=== PATIENT | male | born 1980 | race Two or more races ===

== ENCOUNTER 2022-01-26 09:47 | Emergency (ER) | payer MEDICAID, OTHER ==
[~2022-01-26] VITALS: Ht 188 cm; Wt 110.2 kg
[2022-01-26] MEDS ORDERED: NEOMYCIN-BACITRACIN-POLYM UNITDOSE PKG TOP OINT TOP ONE (10:45)
[2022-01-26] MEDS ORDERED: LORazepam 2MG/ML-1ML VIAL IV ONE (11:45)
[2022-01-26] MEDS ORDERED: SODIUM CHLORIDE 0.9% 1,000 ML IV ONE (11:45)
[2022-01-26] MEDS ORDERED: SODIUM CHLORIDE 0.9% 500 ML IVB ONE (11:45)
[2022-01-26 12:17] LABS: Basophils # (auto) 0 10 ^3/uL (0-0.2); Basophils % (auto) 0.5 % (0.0-2.0); Eosinophils # (auto) 0.1 10 ^3/uL (0-0.8); Eosinophils % (auto) 1.8 % (0.0-7.0); Hematocrit 43.8 % (41.0-53.0); Hemoglobin 14.8 g/dL (13.5-17.5); Lymphocytes # (auto) 1.5 10 ^3/uL (0.4-5.4); Lymphocytes % (auto) 20.6 % (10.0-50.0); Mean Corpuscular Hemoglobin 30.8 pg (28.0-32.0); Mean Corpuscular Hgb Conc. 33.7 g/dL (32.0-36.0); Mean Corpuscular Volume 91.4 fL (80.0-100.0); Monocytes # (auto) 0.3 10 ^3/uL (0-1.3); Monocytes % (auto) 4.6 % (0.0-12.0); Neutrophils # (auto) 5.2 10 ^3/uL (1.6-8.6); Neutrophils % (auto) 72.5 % (37.0-80.0); Red Cell Distribution Width 14.6 % (11.8-14.3); White Blood Cell 7.1 10^3/uL (4.4-10.8)
[2022-01-26 12:40] LABS: Albumin 3.7 g/dL (3.4-5.0); BUN/Creatinine Ratio 10.3; Magnesium 2.2 mg/dL (1.6-2.6); Potassium 4.4 mmol/L (3.5-5.1)
[2022-01-26 12:51] LABS: Bilirubin, Total 0.6 mg/dL (0.2-1.0); Total Protein 7.7 g/dL (6.4-8.2)
[2022-01-26 13:42] LABS: Urine Bacteria NONE SEEN /hpf (None Seen); Urine Blood 1+ /uL (Negative); Urine Specific Gravity 1.017 (1.001-1.035); Urine WBC <1 /hpf (0 - 3)
[2022-01-26 13:54] LABS: Alcohol, Urine < 3.0 mg/dL (0-10); Amphetamine Screen, Urine NEGATIVE (NEGATIVE); Barbiturate Scree,Urine NEGATIVE (NEGATIVE); Benzodiazephine Screen, Urine NEGATIVE (NEGATIVE); Cannabinoid Screen, Urine NEGATIVE (NEGATIVE); Cocaine Screen, Urine NEGATIVE (NEGATIVE); Opiate Scree,Urine NEGATIVE (NEGATIVE); Phencyclidine Screen, Urine NEGATIVE (NEGATIVE)
[2022-01-26] MEDS ORDERED: KETOROLAC TROMETH 30 MG/ML 1ML VIAL IV ONE (16:00)
[2022-01-26] MEDS ORDERED: METOCLOPRAMIDE HCL 5MG/ml INJ 2ml VIAL IV ONE (16:00)
[2022-01-26 16:30] VITALS: BP 136/70
== END 2022-01-26 16:39 | disposition home or self-care (01) ==
LOC: ER 09:47
DX: F32.9 Major depressive disorder, single episode, unspecified (principal); R44.0 Auditory hallucinations; R45.851 Suicidal ideations; M54.12 Radiculopathy, cervical region; Z90.49 Acquired absence of other specified parts of digestive tract
CPT/HCPCS: 36415; 70450; 71046; 80053; 80307; 81001; 83735; 84443; 85025; 93005; 96361; 96374; 99285; J2060; J7030; J7040

== ENCOUNTER 2022-01-26 18:43 | Emergency (ER) | payer MEDICAID ==
[~2022-01-26] VITALS: Ht 185.4 cm; Wt 117.9 kg
[2022-01-26 20:11] LABS: Urine Bacteria NONE SEEN /hpf (None Seen); Urine Blood 1+ /uL (Negative); Urine Specific Gravity 1.019 (1.001-1.035); Urine WBC 1 /hpf (0 - 3)
[2022-01-26 20:49] LABS: Alcohol, Urine < 3.0 mg/dL (0-10); Amphetamine Screen, Urine NEGATIVE (NEGATIVE); Barbiturate Scree,Urine NEGATIVE (NEGATIVE); Benzodiazephine Screen, Urine NEGATIVE (NEGATIVE); Cannabinoid Screen, Urine NEGATIVE (NEGATIVE); Cocaine Screen, Urine NEGATIVE (NEGATIVE); Opiate Scree,Urine NEGATIVE (NEGATIVE); Phencyclidine Screen, Urine NEGATIVE (NEGATIVE)
[2022-01-26 21:23] LABS: Basophils # (auto) 0 10 ^3/uL (0-0.2); Basophils % (auto) 0.5 % (0.0-2.0); Eosinophils # (auto) 0.1 10 ^3/uL (0-0.8); Hematocrit 42.5 % (41.0-53.0); Hemoglobin 14.4 g/dL (13.5-17.5); Lymphocytes # (auto) 1.6 10 ^3/uL (0.4-5.4); Lymphocytes % (auto) 27.9 % (10.0-50.0); Mean Corpuscular Hemoglobin 30.8 pg (28.0-32.0); Mean Corpuscular Hgb Conc. 33.9 g/dL (32.0-36.0); Mean Corpuscular Volume 90.7 fL (80.0-100.0); Monocytes # (auto) 0.4 10 ^3/uL (0-1.3); Neutrophils # (auto) 3.6 10 ^3/uL (1.6-8.6); Neutrophils % (auto) 62.6 % (37.0-80.0); Nucleated Red Blood Cells % 0.1 %; Red Blood Cells 4.68 10^6/uL (4.5-5.90); Red Cell Distribution Width 14.7 % (11.8-14.3); White Blood Cell 5.7 10^3/uL (4.4-10.8)
[2022-01-26 21:44] LABS: Albumin 3.4 g/dL (3.4-5.0); BUN/Creatinine Ratio 11.1; Potassium 3.6 mmol/L (3.5-5.1); Salicylate < 1.7 mg/dL (2.8-20.0)
[2022-01-26 21:46] LABS: Acetaminophen < 2.0 ug/mL (10-30)
[2022-01-26 21:47] LABS: Bilirubin, Total 0.7 mg/dL (0.2-1.0); Total Protein 7.1 g/dL (6.4-8.2)
[2022-01-26] MEDS ORDERED: MORPHINE SULFATE INJECTION 2 MG/ML SYRG IM ONE (23:00)
[2022-01-26] MEDS ORDERED: LORazepam 2MG/ML-1ML VIAL IM ONE (23:00)
[2022-01-26] MEDS ORDERED: HALOPERIDOL LACTATE 5 MG/ML INJ VIAL IM ONE (23:00)
[2022-01-26] MEDS ORDERED: diphenhdrAMINE HCL 50 MG/1 ML VL IM ONE (23:00)
[2022-01-27] MEDS ORDERED: HYDROmorphone HCL 2 MG/ML VL IM ONE (03:45)
[2022-01-27] MEDS ORDERED: HYDROcodone-ACET 5/325MG TAB PO ONE (08:45)
[2022-01-27] MEDS ORDERED: LORazepam 2MG/ML-1ML VIAL IM ONE (10:30)
[2022-01-27] MEDS ORDERED: LORazepam 2MG/ML-1ML VIAL ONE (10:33)
[2022-01-27] MEDS ORDERED: HYDROcodone-ACET 10/325MG TAB PO ONE ×2 (14:00→20:30)
[2022-01-27] MEDS ORDERED: SERTRALINE HCL 50 MG TAB PO ONE (15:30)
[2022-01-27] MEDS ORDERED: KETOROLAC TROMETH 60MG/2ML VIAL IM ONE (15:30)
[2022-01-27] MEDS ORDERED: CYCLOBENZAPRINE HCL 10 MG TAB PO ONE (20:30)
[2022-01-27] MEDS: SERTRALINE HCL 50 MG TAB PO SCH (22:16)
[2022-01-28] MEDS: HYDROcodone-ACET 10/325MG TAB PO PRN ×4 (07:42→23:52)
[2022-01-28] MEDS: SERTRALINE HCL 50 MG TAB PO SCH ×2 (10:26→22:33)
[2022-01-28] MEDS ORDERED: LORazepam 2MG/ML-1ML VIAL IM ONE (11:00)
[2022-01-28] MEDS ORDERED: diphenhdrAMINE HCL 50 MG/1 ML VL ONE (11:28)
[2022-01-28] MEDS ORDERED: diphenhdrAMINE HCL 50 MG/1 ML VL IM ONE (11:30)
[2022-01-28] MEDS ORDERED: OLANZapine 5 MG TAB PO ONE (13:30)
[2022-01-28] MEDS: buPROPion HCL 75 MG TAB PO SCH ×2 (13:48→19:03)
[2022-01-29] MEDS: buPROPion HCL 75 MG TAB PO SCH (06:51)
[2022-01-29 08:02] VITALS: BP 139/88
[2022-01-29] MEDS: SERTRALINE HCL 50 MG TAB PO SCH (10:32)
[2022-01-29] MEDS ORDERED: buPROPion HCL 100 MG TAB PO SCH (13:30)
== END 2022-01-29 12:39 | disposition left against medical advice (07) ==
LOC: EDBD 18:43 → EDUNIT# 18:43 → ER 18:48
DX: S00.01XA Abrasion of scalp, initial encounter (principal); F20.9 Schizophrenia, unspecified; R45.851 Suicidal ideations; M25.511 Pain in right shoulder; R51.9 Headache, unspecified; R07.89 Other chest pain; Z90.49 Acquired absence of other specified parts of digestive tract; Z20.822 Contact with and (suspected) exposure to COVID-19; X58.XXXA Exposure to other specified factors, initial encounter; Y93.89 Activity, other specified; Y92.89 Other specified places as the place of occurrence of the external cause; Y99.8 Other external cause status
CPT/HCPCS: 36415; 70450; 80053; 80307; 80329; 81001; 85025; 87426; 93005; 96372; 99285; J1200; J1630; J2060; J2270; 73030; J1885